=== PATIENT | male | born 2000 | race Caucasian/White ===

== ENCOUNTER 2025-05-01 20:31 | Emergency (ER) | payer SELFPAY ==
[2025-05-01 20:32] VITALS: BMI 27.3
--- NOTE | 2025-05-01 20:39 | XR_ITS ---
Examination: PA lateral chest 2 views TECHNIQUE: Upright PA and lateral chest 2 views Date and time: May 01, 20252 hours INDICATIONS: Coughing beginning 2 weeks ago. FINDINGS: Bilateral perihilar right basilar right middle lobe pneumonia Normal heart size Osseous structures are intact IMPRESSION: Bilateral perihilar right basilar right middle lobe pneumonia
[2025-05-01 21:39] VITALS: BP 115/64; PULSE 119; RESP 20; TEMP 39.5; O2SAT 93
[2025-05-01 22:12] LABS: Basophils # (Auto) 0.1 Thou/mm3 (0.0-0.2); Basophils % (Auto) 0 % (0-2.5); Eosinophils # (Auto) 0.1 Thou/mm3 (0.0-0.5); Eosinophils % (Auto) 0 % (0-10); Hematocrit 39.7 % (41.0-53.0); Hemoglobin 14.4 g/dL (13.5-16.0); Immature Granulocytes % (Auto) 1 % (0-0); Lactate (Lactic Acid) 1.3 mMol/L (0.4-2.0); Lymphocytes # (Auto) 1.8 Thou/mm3 (1.0-4.8); Lymphocytes % (Auto) 9 % (10-50); Mean Corpuscular HGB Conc 36.3 g/dl (31.0-37.0); Mean Corpuscular Hemoglobin 31.1 pg (25.0-35.0); Mean Corpuscular Volume 86 fL (80-100); Monocytes # (Auto) 1.6 Thou/mm3 (0.0-0.8); Monocytes % (Auto) 8 % (0-12); Neutrophils # (Auto) 16.4 Thou/mm3 (1.8-7.7); Neutrophils % (Auto) 82 % (37-80); Nucleated Red Blood Cell % 0 /100 WBC (0); Platelet Count 512 Thou/mm3 (140-440); RDW Standard Deviation 35.7 fL (35.1-43.9); Red Blood Count 4.63 Miln/mm3 (4.50-5.90)
--- NOTE | 2025-05-01 22:23 | PD.EDSOB ---
ED SOB =RME/HPI General Chief Complaint: Flu Like Symptoms Stated Complaint: COUGH, FEVER, VOMITING Time Seen by Provider: 05/01/25 21:49 Arrival date/time: 05/01/25 20:31 25M with no significant PMH presents to ED with 2 weeks of cough and 1 week of N/V when coughing. There have also been fevers/chills. Limitations: no limitations Related Data Home Medications ?Medication ?Instructions ?Recorded ?Confirmed doxycycline hyclate 100 mg tablet 100 mg PO QDAY 09/29/19 09/29/19 Previous Rx's ?Medication ?Instructions ?Recorded hydrocodone 5 mg-acetaminophen 325 2 tab PO Q6H PRN pain (scale score 09/30/19 mg tablet ([place]) 7-10) #16 tabs albuterol sulfate 90 mcg/actuation 2 puff inhalation Q6H PRN 05/02/25 aerosol inhaler (Ventolin HFA) shortness of breath or wheezing #8.5 grams amoxicillin 875 mg tablet 875 mg PO TID 5 days #15 tabs 05/02/25 azithromycin 250 mg tablet See Rx Instructions PO .COMPLEX #6 05/02/25 tabs Allergies Allergy/AdvReac Type Severity Reaction Status Date / Time No Known Allergies Allergy Verified 05/01/25 20:32 Review of Systems Review of Systems Systems Reviewed: All systems reviewed, normal except as documented Constitutional Constitutional: Reports system reviewed and no additional complaints, except as documented, Reports as per HPI, Reports chills, Reports fever(s) and Denies headache(s) ENT Ears, Nose, Mouth, and Throat: Denies disequilibrium and Denies headache(s) Cardiovascular Cardiovascular: Reports system reviewed and no additional complaints, except as documented, Denies chest pain and Denies dyspnea Respiratory Respiratory: Reports system reviewed and no additional complaints, except as documented, Reports as per HPI, Reports cough and Denies dyspnea Gastrointestinal Gastrointestinal: Reports system reviewed and no additional complaints, except as documented, Reports as per HPI, Denies abdominal pain, Reports nausea and Reports vomiting Neurologic Neurologic: Reports system reviewed and no additional complaints, except as documented, Denies confusion, Denies disequilibrium and Denies headache(s) Psychiatric Psychiatric: Denies confusion 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); Negative Congestive Heart Failure RESPIRATORY: Positive Asthma; Negative Chronic Obstructive Pulmonary Disease (COPD) GASTROINTESTINAL: Negative Gastrointestinal Disorders GENITOURINARY: Negative Genitourinary Disorders or Renal Disease MUSCULOSKELETAL: Positive Musculoskeletal Disorders and Fractures (RIGHT WRIST) ENDOCRINE: Negative Endocrine Disorders, Diabetes Mellitus Type 1 or Diabetes Mellitus Type 2 HEMATOLOGIC: Negative Blood Disorders or Sickle Cell Disease OTHER HISTORY: Positive Falls and Chicken Pox; Negative Hospitalization, Autoimmune Disease, Blood Transfusions, Blood Transfusion Reaction or Anesthesia Reactions Family History FAMILY HISTORY: Positive Family Cardiac Disorders (GRANDFATHER- HEART TRANSPLANT), Family Cancer and Family Surgery; Negative Family Psychiatric Problems, Family Respiratory Disorders, Family Gastrointestinal Problems or Family Anesthesia Reaction Social History SMOKING STATUS: Never smoker SECOND HAND EXPOSURE: No ED Exam General Limitations: Present no limitations General appearance: Present alert and in no apparent distress Head Head exam: Present atraumatic Eye Eye exam: Present normal appearance, PERRL and EOMI ENT ENT exam: Present normal exam, normal oropharynx and mucous membranes moist Neck Neck exam: Present normal inspection, full ROM and trachea midline Chest Chest inspection: Present normal inspection and symmetric chest wall rise Respiratory Respiratory exam: Present normal lung sounds bilaterally Cardiovascular Cardiovascular exam: Present regular rate, normal rhythm and normal heart sounds Abdominal Exam Abdominal exam: Present soft and normal bowel sounds Extremities Exam Extremities exam: Present normal inspection and full ROM Back Exam Back exam: Present normal inspection and full ROM Neurological Exam Neurological exam: Present alert, oriented X3 and CN II-XII intact Psychiatric Psychiatric exam: Present normal affect and normal mood Skin Skin exam: Present warm, dry, intact and normal color Course Quality Measures none Orders Category Date Time Status Bedside COVID-19 Antigen Test NOW Care 05/01/25 21:49 Completed Bedside Influenza A&B Antigen Test NOW Care 05/01/25 21:49 Completed COVID-19 Screening Questionnaire NOW Care 05/02/25 01:57 Completed Decision to Admit X1 Care 05/02/25 01:57 Completed Insert IV NOW Care 05/01/25 23:00 Completed XR chest 2V Stat Exams 05/01/25 20:39 Completed Blood Culture (Lab) Stat Lab 05/01/25 21:50 Received CBC Stat Lab 05/01/25 21:58 Completed CMP [Comprehensive Metabolic Panel] Stat Lab 05/01/25 21:58 Completed Cocci Serology IgM with reflex to IgG [Cocci Serology, Lab 05/01/25 21:58 Received Unk History] Stat Lactate (Lactic Acid) Stat Lab 05/01/25 21:58 Completed Procalcitonin Stat Lab 05/01/25 21:58 Completed Acetaminophen Tab [Tylenol ES Tab] Med 05/01/25 21:49 Discontinued 1,000 mg PO X1 ONE Albuterol/Ipratr Rt Jennifer [Duoneb Rt Jennifer] Med 05/01/25 22:46 Discontinued 3 ml INH X1 ONE Albuterol/Ipratr Rt Jennifer [Duoneb Rt Jennifer] Med 05/02/25 02:10 Discontinued 3 ml INH X1 ONE Azithromycin Inj [Zithromax Inj] 500 mg Med 05/01/25 21:51 Discontinued Sodium Chloride 0.9% 250 ml [Ns] 250 ml IV X1 Ketorolac Inj [Toradol Inj] Med 05/01/25 21:49 Discontinued 30 mg IVP X1 ONE Sodium Chloride 0.9% 1000 ml [Ns] 1,000 ml Med 05/01/25 21:49 Discontinued IV 999 mls/hr Sodium Chloride 0.9% 1000 ml [Ns] 1,000 ml Med 05/01/25 21:51 Discontinued IV 999 mls/hr cefTRIAXone/D5w 1gm IV premix [Rocephin/D5w 1gm IV Med 05/01/25 21:50 Discontinued premix] 1 gm in 50 ml IV X1 Oxygen Delivery NOW RT 05/01/25 21:49 Completed Vital Signs Vital signs: Vital Signs Temperature 103.1 F H 05/01/25 21:39 Pulse Rate 119 H 05/01/25 21:39 Respiratory Rate 20 05/01/25 21:39 Blood Pressure 115/64 05/01/25 21:39 Pulse Oximetry (%) 93 L 05/01/25 21:39 Oxygen Delivery Method Room Air 05/01/25 21:39 O2 at 93% on RA Shortness of Breath / Dyspnea MDM Narrative MDM Narrative:: 25M with no significant PMH presents to ED with 2 weeks of cough and 1 week of N/V when coughing. There have also been fevers/chills. Physical exam reveals clear lungs and normal WOB. Patient is febrile, but does not appear toxic. Sepsis alert called due to SIRS criteria. CXR reveals PNA. Significant leukocytosis, but procal/lactate normal. CMP unremarkable. Cocci pending. Swabs neg. Patient felt better after meds. Resting O2% at 93%-94% with normal WOB. Spoke to residents who asked attending Dr. Phelsp, who state admission is not needed. Patient data External records reviewed:: [facility] previous records Clinical information provided by:: patient Social determinants that could affect healthcare access:: none Patient has the following chronic illnesses:: none How is presenting disease/condition affected by chronic disease/condition?: no chronic disease Evaluation data The following diagnostics were reviewed and interpreted by me:: lab results and radiology exam(s) Lab and/or radiology exams considered but not ordered:: ordered Interpretation Summary: above Medications / Prescriptions Medications or Prescriptions considered but not ordered:: ordered Medication administrations:: Medication Administration History Discontinued Medications Acetaminophen (Acetaminophen 500 Mg Tablet) 1,000 mg PO X1 ONE Stop: 05/01/25 21:50 Last Admin: 05/01/25 23:54 Dose: 1,000 mg Documented By: PHYLLIS Albuterol/Ipratropium (Albuterol/Ipratropium (Duoneb) Rt Jennifer 3 Ml Nebu) 3 ml INH X1 ONE Stop: 05/01/25 22:47 Last Admin: 05/02/25 00:01 Dose: 3 ml Documented By: CARLO Albuterol/Ipratropium (Albuterol/Ipratropium (Duoneb) Rt Jennifer 3 Ml Nebu) 3 ml INH X1 ONE Stop: 05/02/25 02:11 Last Admin: 05/02/25 02:19 Dose: 3 ml Documented By: CARLO Sodium Chloride (Ns) 1,000 mls @ 999 mls/hr IV .Q1H1M ONE Stop: 05/01/25 22:49 Last Infusion: 05/02/25 01:10 Dose: Infused Documented By: Admin: 05/01/25 23:55 Dose: 999 mls/hr Documented By: PHYLLIS Ceftriaxone Sodium/Dextrose (Rocephin/D5w 1gm Iv Premix) 1 gm in 50 mls @ 100 mls/hr IV X1 ONE Stop: 05/01/25 22:19 Last Infusion: 05/02/25 00:25 Dose: Infused Documented By: Admin: 05/01/25 23:54 Dose: 100 mls/hr Documented By: BD Sodium Chloride (Ns) 1,000 mls @ 999 mls/hr IV .Q1H1M ONE Stop: 05/01/25 22:51 Last Infusion: 05/02/25 01:10 Dose: Infused Documented By: Admin: 05/01/25 23:55 Dose: 999 mls/hr Documented By: BD Azithromycin 500 mg/ Sodium (Chloride) 250 mls @ 250 mls/hr IV X1 ONE Stop: 05/01/25 22:50 Last Infusion: 05/02/25 01:37 Dose: Infused Documented By: Admin: 05/02/25 00:26 Dose: 250 mls/hr Documented By: BD Ketorolac Tromethamine (Ketorolac Inj 30 Mg/Ml Vial) 30 mg IVP X1 ONE Stop: 05/01/25 21:50 Last Admin: 05/01/25 23:48 Dose: Not Given Documented By: BD Non-Admin Reason: Patient Refused above Consultations Consultation(s) initiated? (list below): No Diagnosis Shortness of Breath Differential Diagnosis: acute exacerbation of chronic obstructive airways disease, congestive heart failure, community acquired pneumonia, asthma with exacerbation and pulmonary embolism Most likely diagnosis given after review of the tests above:: CAP Admission Indicated Admission indicated?: not indicated Explain why admission is indicated or not indicated:: Hospitalist declined admission Admission Request Was there a request for admission?: Yes Admission Attestation Admission request attestation: Discussed case with [Dr. Phelps] from Hospitalist service regarding admission. Discussed patients ED course, exam findings, labs, and radiology results. The Hospitalist [declines] to accept the patient for admission. Disposition Plan Disposition Plan: Discharge Discharge Attestation Discharge Attestation: The patient and all family members were given an opportunity to ask questions and understood the discharge instructions. Discharge instructions specifically effects, indications for sooner follow up or return to the emergency department, and the expected course of current diagnosis. Patient condition: Stable Discharge Plan Plan Patient Disposition: HOME (Self Care) Discharge Disposition comment: Stable Prescriptions/Referrals Prescriptions/Med Rec: New amoxicillin 875 mg tablet 875 mg PO TID 5 Days Qty: 15 0RF azithromycin 250 mg tablet See Rx Instructions .ROUTE .COMPLEX Qty: 6 0RF Rx Instructions: For 250 mg dose pack: take 500 mg today (day 1), then 250 mg for 4 days (days 2-5) albuterol sulfate [Ventolin HFA] 90 mcg/actuation HFA aerosol inhaler 2 puff inhalation Q6H PRN (Reason: shortness of breath or wheezing) Qty: 8.5 0RF No Action doxycycline hyclate 100 mg Tablet 100 mg PO QDAY hydrocodone-acetaminophen [[place]] 5-325 mg tablet 2 tab PO Q6H MDD 8 PRN (Reason: pain (scale score 7-10)) Qty: 16 0RF Referrals: Ja Ortega MD [Primary Care Provider] - In 1 week Problem List Clinical Impression: CAP (community acquired pneumonia) Patient/Caregiver Discharge Instructions Education Materials: ED Pneumonia (Adult) Additional Instructions: Please follow-up with PCP within 24-48 hours and return immediately if symptoms worsen. Ibuprofen/Tylenol can be used simultaneously for greater fever/pain control. Benadryl is good for cough, congestion, and sleep. Print Language: Pashto Stand Alone Forms: Patient Portal Info Letter PA/[employer] Supervising Physician SACHIN/[employer] Supervising Physician: Dr. Chavez
[2025-05-01 22:37] LABS: Alanine Aminotransferase 27 U/L (10-49); Albumin, Serum 4.3 gm/dL (3.5-5.0); Albumin/Globulin Ratio 1.2 (1.2-2.2); Alkaline Phosphatase 78 U/L (46-116); Anion Gap 12 (7-16); Aspartate Amino Transferase 32 U/L (0-34); BUN/Creatinine Ratio 11 Ratio (12-20); Bilirubin,Total 0.4 mg/dL (0.3-1.2); Blood Urea Nitrogen 15 mg/dL (9-23); Calcium 8.9 mg/dL (8.3-10.6); Calcium (Corrected) 8.9 mg/dL (8.5-10.1); Carbon Dioxide 27.3 mMol/L (20.0-31.0); Chloride 96 mMol/L (98-107); Creatinine (Component) 1.4 mg/dL (0.6-1.3); Estimated Creatinine Clearance 80.7 mL/min (>60); Globulin 3.6 gm/dL (2.3-3.5); Glucose 106 mg/dL (74-106); Osmolality,Calculated 270 (275-295); Potassium 4.4 mMol/L (3.4-5.1); Procalcitonin 0.41 ng/ml (0.0-0.49); Sodium 135 mMol/L (136-145); Total Protein 7.9 gm/dL (5.7-8.2); eGFR > 60 See Note
[2025-05-01 23:36] VITALS: BP 122/71; PULSE 118; RESP 18; TEMP 37.4; O2SAT 95
[2025-05-01 23:54] VITALS: TEMP 37.2
[2025-05-01] MEDS: ACETAMINOPHEN 500 MG TABLET 1000 MG PO (23:54)
[2025-05-01] MEDS: cefTRIAXone/D5w 1gm IV premix 1 GM/50 ML BAG IV (23:54)
[2025-05-01] MEDS: SODIUM CHLORIDE 0.9% 1000 ML 1,000 ML 999 ML IV ×2 (23:55)
[2025-05-02] VITALS: BP 119/74; PULSE 97; RESP 18; TEMP 37; O2SAT 94
[2025-05-02] MEDS: ALBUTEROL/IPRATROPIUM (Duoneb) RT SOL 3 ML NEBU INH ×2 (00:01→02:19)
[2025-05-02 00:05] VITALS: PULSE 110; RESP 20; O2SAT 95
[2025-05-02] MEDS: AZITHROMYCIN INJ 500 MG in SODIUM CHLORIDE 0.9% 250 ML 250 ML 250 MG IV (00:26)
[2025-05-02 00:50] VITALS: TEMP 36.7
[2025-05-02 01:00] VITALS: BP 122/74; PULSE 89; RESP 18; TEMP 37; O2SAT 94
[2025-05-02 02:00] VITALS: BP 124/64; PULSE 88; RESP 18; TEMP 37; O2SAT 94
--- NOTE | 2025-05-02 02:10 | PD.RESCONSUL ---
HPI Data of Consult Primary Care Provider: Ja Ortega MD Consult Narrative Reason for consult: Cough, hypoxia History of present illness: We were called to assess a 25-year-old male with no relevant past medical history for a cough that has been going on for 2 weeks and patient has been saturating in the low 90s since he came into the ER. Patient stated that around 2 weeks ago he started having a cough and that sometimes it was so severe that he vomited. He stated that he also had on and off fevers but did not have any chest pain or shortness of breath at any time. On assessment patient was saturating well on room air. He has not been taking any antibiotics and did not go to his primary care physician prior to coming to the ED. He did not recall any sick contacts, but he does work at a school. Otherwise patient did not have any other complaints other than the nausea and vomiting and the cough. ED course: Patient came in initially with fever of 103.1 and tachycardia. Initial labs revealing for leukocytosis, mild NORMA, and a negative procalcitonin. Initial chest x-ray showed right-sided pneumonia. PMH: None Surgical Hx: Appendectomy Medication: None per patient Allergies: NKDA Social Hx denies any smoking, drinking, drugs cc:: cc: Review of Systems Review of Systems Narrative Review of Systems: Constitutional: Denies sweats, Denies weight loss/gain, Denies fever, Denies chills. HEENT: Denies hearing loss, Denies ear pain, Denies postnasal drip, Denies double vision, Denies blurry vision. Respiratory: Denies shortness of breath, Admits cough, Denies wheezing. Cardiovascular: Denies chest pain, Denies palpitations, Denies sudden loss of consciousness. GI: Denies blood in stool, Denies constipation, Denies abdominal pain, Denies difficulty swallowing, Admits nausea or vomit. : Denies urinary incontinence, Denies pain while urinating, Denies increased urinary frequency. MSK: Denies joint pain, Denies joint swelling, Denies numbness. Skin: Denies rash, Denies itching, Denies easy bruising. Neuro: Denies headaches, Denies dizziness, Denies seizures. 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); Negative Congestive Heart Failure RESPIRATORY: Positive Asthma; Negative Chronic Obstructive Pulmonary Disease (COPD) GASTROINTESTINAL: Negative Gastrointestinal Disorders GENITOURINARY: Negative Genitourinary Disorders or Renal Disease MUSCULOSKELETAL: Positive Musculoskeletal Disorders and Fractures (RIGHT WRIST) ENDOCRINE: Negative Endocrine Disorders, Diabetes Mellitus Type 1 or Diabetes Mellitus Type 2 HEMATOLOGIC: Negative Blood Disorders or Sickle Cell Disease OTHER HISTORY: Positive Falls and Chicken Pox; Negative Hospitalization, Autoimmune Disease, Blood Transfusions, Blood Transfusion Reaction or Anesthesia Reactions Family History FAMILY HISTORY: Positive Family Cardiac Disorders (GRANDFATHER- HEART TRANSPLANT), Family Cancer and Family Surgery; Negative Family Psychiatric Problems, Family Respiratory Disorders, Family Gastrointestinal Problems or Family Anesthesia Reaction Social History SMOKING STATUS: Never smoker SECOND HAND EXPOSURE: No Exam Vital Signs Temp Pulse Resp BP Pulse Ox O2 Del Method O2 Flow Rate 98.6 F 89 18 122/74 94 L Room Air 2 05/02/25 01:00 05/02/25 01:00 05/02/25 01:00 05/02/25 01:00 05/02/25 01:00 05/02/25 01:00 05/02/25 00:05 Narrative Exam General: A/O x3, no acute distress, well-nourished, well-developed Eyes: PERRL, EOMI. Anicteric, vision grossly intact. Ears: No ear pain, no ear discharge, Hearing grossly intact. Nose: No nasal discharge. Mouth/Throat: Moist mucous membranes, no redness, no lesions. Neck: Neck supple, non-tender, no cervical lymphadenopathy. Lungs: Clear CHEN to auscultation and percussion, No accessory muscle use. Cardio: Normal S1/S2, regular rhythm, no murmurs, no JVD or carotid bruits. Abdomen: Soft, non-tender, no palpable masses, peristalsis present, no guarding or rebound. Extremities: Symmetrical, no significant deformities, no peripheral edema , non-tender, peripheral pulses presents. Skin: No rashes, no lesions, warm to touch. Neuro: No focal neurological deficits. motor and sensory intact Psych: Cooperative, appropriate mood and effect. Results Labs 05/01/25 21:58 05/01/25 21:58 Labs: Short CBC 05/01/25 Range/Units 21:58 WBC 20.0 H (3.8-10.6) Thou/mm3 Hgb 14.4 (13.5-16.0) g/dL Hct 39.7 L (41.0-53.0) % Plt Count 512 H (140-440) Thou/mm3 BMP 05/01/25 21:58 Sodium 135 L Potassium 4.4 Chloride 96 L Carbon Dioxide 27.3 BUN 15 Creatinine 1.4 H Glucose 106 Calcium 8.9 Liver Function 05/01/25 Range/Units 21:58 Total Bilirubin 0.4 (0.3-1.2) mg/dL AST 32 (0-34) U/L ALT 27 (10-49) U/L Alkaline Phosphatase 78 (46-116) U/L Albumin 4.3 (3.5-5.0) gm/dL Quality Measures Quality Measures none Medications Home Medications and Allergies Home Medications ?Medication ?Instructions ?Recorded ?Confirmed ?Type doxycycline hyclate 100 mg tablet 100 mg PO QDAY 09/29/19 09/29/19 History Allergies Allergy/AdvReac Type Severity Reaction Status Date / Time No Known Allergies Allergy Verified 05/01/25 20:32 Visit Medications Albuterol/Ipratropium (Albuterol/Ipratropium (Duoneb) Rt Jennifer 3 Ml Nebu) 3 ml INH X1 ONE Stop: 05/02/25 02:11 Discontinued Medications Acetaminophen (Acetaminophen 500 Mg Tablet) 1,000 mg PO X1 ONE Stop: 05/01/25 21:50 Last Admin: 05/01/25 23:54 Dose: 1,000 mg Albuterol/Ipratropium (Albuterol/Ipratropium (Duoneb) Rt Jennifer 3 Ml Nebu) 3 ml INH X1 ONE Stop: 05/01/25 22:47 Last Admin: 05/02/25 00:01 Dose: 3 ml Sodium Chloride (Ns) 1,000 mls @ 999 mls/hr IV .Q1H1M ONE Stop: 05/01/25 22:49 Last Infusion: 05/02/25 01:10 Dose: Infused Ceftriaxone Sodium/Dextrose (Rocephin/D5w 1gm Iv Premix) 1 gm in 50 mls @ 100 mls/hr IV X1 ONE Stop: 05/01/25 22:19 Last Infusion: 05/02/25 00:25 Dose: Infused Sodium Chloride (Ns) 1,000 mls @ 999 mls/hr IV .Q1H1M ONE Stop: 05/01/25 22:51 Last Infusion: 05/02/25 01:10 Dose: Infused Azithromycin 500 mg/ Sodium (Chloride) 250 mls @ 250 mls/hr IV X1 ONE Stop: 05/01/25 22:50 Last Infusion: 05/02/25 01:37 Dose: Infused Ketorolac Tromethamine (Ketorolac Inj 30 Mg/Ml Vial) 30 mg IVP X1 ONE Stop: 05/01/25 21:50 Last Admin: 05/01/25 23:48 Dose: Not Given Assessment & Plan Plan We were called to assess a 25-year-old male with no relevant past medical history for a cough that has been going on for 2 weeks and patient has been saturating in the low 90s since he came into the ER. #Community-acquired pneumonia #Cough #Nausea and Vomit #NORMA Patient has been complaining of a cough for the past 2 weeks and on and off fever that have not subsided. Patient's qSOFA was 1 [address] 65 was 0 Patient's chest x-ray did show a right sided pneumonia Patient was saturating well on room air and did not have any dyspnea on assessment. Patient had a creatinine of 1.4 from baseline 1 Procalcitonin was negative at 0.41 Plan: Would recommend discharging the patient on a Z-Marshall and possible inhalers Would encourage oral hydration for NORMA Would recommend considering sending patient on some Zofran or Reglan for nausea as needed Would recommend to follow-up with primary care physician within the next 7 days Would recommend coming back to the ED if symptoms worsen or persist Thank you for allowing us to be part of the patient's care. Internal medicine team Case discussed with my attending Dr. Mattie Weaver, PGY 1 Attending Provider Attestation/Addendum I, Odalys Phelps, DO, attest that I was physically present for the ballard portions of the service and evaluated the patient with the resident and I reviewed and discussed the case with the resident and agree with the resident's findings and plans of care as documented above Patient is a 25yo male with no Pmhx who presented to ED due to cough that has lasted two weeks. Patient has been taking over the counter medications, but did not receive any antibiotics or see his PCP. 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 Patient is 96% on room air and able to speak full sentences, no acute distress. Patient states he gets short of breath with coughing spells. He came to ED due to vomiting after coughing spell. He is noted to have fever on presentation and NORMA with leukocytosis. Patient received IV fluids, azithromycin and rocephin. Patient states he is feeling well. Lungs are clear to auscultation bilaterally. He denies any dyspnea on exertion. Patient is stable for discharge home on PO antibiotics and to follow up with PCP at [facility].
[2025-05-02 02:19] VITALS: PULSE 88; RESP 18; O2SAT 96
[2025-05-02 12:03] LABS: Cocci Serology, IgM Negative (Negative)
[2025-05-03 13:22] LABS: Cocci Serology, IgG Negative (Negative)
== END 2025-05-02 02:35 | disposition home or self-care (01) ==
PROVIDERS: Physician Assistant; Emergency Provider Emergency Medicine; PCP Family Medicine
DX: J18.9 Pneumonia, unspecified organism (principal)
CPT/HCPCS: 36415; 71046; 80053; 83605; 84145; 85025; 86331; 86635; 87040; 87400; 87811; 94640; 96365; 96367; 99284; A9270; J0456; J0696; J7030; J7050